=== PATIENT | male | born 1990 | race African-American/Black ===

== ENCOUNTER 2017-12-25 19:16 | Emergency (ER) | payer OTHER ==
[~2017-12-25] VITALS: Ht 182.9 cm; Wt 81.6 kg
[2017-12-25] MEDS ORDERED: Ketorolac 30mg Inj IM ONE (19:45)
--- NOTE | 2017-12-25 19:55 | Emergency Room Report ---
History of Present Illness General Chief Complaint: Lower Extremity Injury Source: Patient Present Illness HPI 27-year-old male patient presents ER complaining of right knee pain status post injury few hours ago. Reports that he was playing basketball when he performed a spin move he felt his knee buckle. Reports was able to continue playing after injury.. Reports was able to walk throughout the day however when he sat down to rest she noticed swelling symptoms begin to rise. Reports that it is been painful to walk since that time. States has not taken any medication for relief of symptoms. Denies fever, chest pain, shortness of breath. Denies hitting his head or loss consciousness. denies history of injury or trauma to the knee. Allergies: Coded Allergies: No Known Allergies (Unverified , 12/25/17) Patient History Past Medical History: see triage record Reviewed Nursing Documentation: PMH: Agreed; PSxH: Agreed Nursing Documentation-PMH Past Medical History: No Stated History Review of Systems All Other Systems: negative except mentioned in HPI Physical Exam Vital Signs Date Time Temp Pulse Resp B/P (MAP) Pulse Ox O2 Delivery O2 Flow Rate FiO2 12/25/17 19:27 97.8 71 20 122/79 100 Room Air 97.9 Sp02 EP Interpretation: reviewed, normal General Appearance: well appearing, no apparent distress, alert, GCS 15, non- toxic Head: normocephalic, atraumatic Eyes: bilateral eye normal inspection, bilateral eye PERRL ENT: hearing grossly normal, normal pharynx, no angioedema, normal voice, uvula midline, moist mucus membranes Neck: full range of motion Respiratory: lungs clear, normal breath sounds, no rhonchi, no respiratory distress, no accessory muscle use, no wheezing, speaking full sentences Cardiovascular #1: regular rate, rhythm, no edema Musculoskeletal: back normal, digits/nails normal, gait/station normal, decreased range of motion - secondary to pain, swelling - mild, other - NVI, no erythema or warmth to touch, no deformity, patella intact not dislocated, negative anterior and posterior drawer, pain with varus and valgus stress, tender - lateral right knee Neurologic: alert, oriented x3, responsive, motor strength/tone normal, sensory intact Psychiatric: mood/affect normal Skin: no rash Medical Decision Making PA Attestation Dr. Alanis is my supervising Physician whom patient management has been discussed with. Diagnostic Impression: Primary Impression: Knee sprain ER Course Pt. presents to the ED c/o right knee pain. Ddx considered but are not limited to fracture, sprain, strain, contusion, dislocation. No erythema, no warmth to touch, no fever, nontoxic appearing, low suspicion for septic joint. Vital signs: are WNL, pt. is afebrile Ordered X-ray and pain medication. ER COURSE Provided with pain medication. An X-ray of the right knee shows no acute disease per the preliminary reading. likely knee sprain however concern for possible meniscal injury, ice patient to follow-up with orthopedic urgent care and primary care provider to get orthopedic referral. Needs MRI imaging and evaluation. Knee immobilizer was applied to the right knee and was checked afterwards by me showing good alignment and support with distal neurovascular functioning intact. Crutches provided. Patient instructed on RICE method: rest, ice, compression, elevation. Patient instructed on rest, ice and heat. Patient instructed to be NWB Work note provided. Contact information for orthopedic urgent care provided, follow-up with urgent care if unable to followup with primary care provider and get referral to incident response specialist. Followup with primary care provider. Discuss referral to ortho/pain management/ PT as needed. Discuss further imaging with MRI/CT as needed. DISCHARGE: -Rx provided for Ibuprofen for pain symptoms. At this time pt. is stable for d/c to home. Patient is resting comfortably, in no acute distress, nontoxic appearing, talking without difficulty. Will provide printed patient care instructions, and any necessary prescriptions. Patient instructed to follow with primary care provider in 3 - 5 days and to request further follow-up as needed. Care plan and follow up instructions have been discussed with the patient prior to discharge. Take medications as directed. Patient questions asked and answered. Patient reports understanding and agreement to treatment plan. ER precautions given, patient instructed to return to ER immediately for any new or worsening of symptoms. - Please note that this Emergency Department Report was dictated using [employer] engineering technician technology software, occasionally this can lead to erroneous entry secondary to interpretation by the dictation equipment. Other X-Ray Diagnostic Results Other X-Ray Diagnostic Results : X-Ray ordered: right knee # of Views/Limited Vs Complete: 3 View Indication: Pain PA Xray: Interpretation reviewed, by supervising MD, and agrees with findings. Interpretation: no dislocation, no soft tissue swelling, no fractures, other - small ossification noted in posterior of knee Impression: No acute disease PA Scribaraceli Text Jordin Shaikh PA-C Last Vital Signs Date Time Temp Pulse Resp B/P (MAP) Pulse Ox O2 Delivery O2 Flow Rate FiO2 12/25/17 19:47 97.8 12/25/17 19:27 71 20 122/79 100 Room Air Disposition: HOME, SELF-CARE Condition: Stable Scripts Ibuprofen* (MOTRIN*) 600 Mg Tablet 600 MG ORAL Q8H PRN for For Pain, #30 TAB 0 Refills Prov: Kimani Shaikh 12/25/17 Patient Instructions: Meniscus Injury, Knee Sprain Additional Instructions: Patient instructed to follow up with primary care provider and discuss further referral to orthopedics. F/u with orthopedic urgent care in 1 week if unable to get referral from PCP. Need MRI imaging for possible meniscus or soft tissue imaging. Patient instructed on RICE method: rest, ice, compression, elevation. Patient instructed to NWB. Take medications as directed. Patient questions asked and answered. ER precautions given, patient instructed to return to ER immediately for any new or worsening of symptoms. Kimani Shaikh Dec 25, 2017 19:55
[2017-12-25] MEDS ORDERED: IBUPROFEN600 MG ORAL (20:06)
[2017-12-25 20:16] VITALS: BP 113/70
--- NOTE | 2017-12-26 10:21 | Diagnostic Imaging Report ---
Indication: Pain Knee pain/trauma 3 views of the right knee were obtained. Findings: No acute fracture, malalignment, or joint effusion are identified. Joint space is relatively well-maintained. Impression: Negative for acute findings.
== END 2017-12-25 20:16 | disposition home or self-care (01) ==
LOC: EMR 19:50
DX: S83.8X1A Sprain of other specified parts of right knee, initial encounter (principal); X58.XXXA Exposure to other specified factors, initial encounter; Y93.64 Activity, baseball; Y92.39 Other specified sports and athletic area as the place of occurrence of the external cause
CPT/HCPCS: 29515; 73562; 96372; 99283; J1885